=== PATIENT | female | born 1975 | race Two or more races ===

== ENCOUNTER 2017-05-12 18:36 | Emergency (ER) | payer OTHER ==
[~2017-05-12] VITALS: Ht 152.4 cm; Wt 61.2 kg
[~2017-05-12 18:36] MED LIST: ORPH100T PO; SAVELLA50 MG; SMZ-TMP DS 800-1 TAB PO; URETRON DS1 TAB PO
== END 2017-05-12 22:00 | disposition home or self-care (01) ==
LOC: ER 18:36
DX: J02.8 Acute pharyngitis due to other specified organisms (principal); J11.1 Influenza due to unidentified influenza virus with other respiratory manifestations; J06.9 Acute upper respiratory infection, unspecified

== ENCOUNTER 2020-12-31 07:24 | Emergency (ER) | payer OTHER ==
[~2020-12-31] VITALS: Ht 152.4 cm; Wt 68.0 kg
[2020-12-31] MEDS ORDERED: PAMELOR50 M1 (07:39)
[2020-12-31] MEDS ORDERED: FLEXERIL (07:41)
[2020-12-31] MEDS ORDERED: MACRODANTIN50 MG (07:41)
[2020-12-31] MEDS ORDERED: UTIX PO (15:30)
[2020-12-31] MEDS ORDERED: PYRIDIUM DS200 MG PO (15:30)
== END 2020-12-31 16:12 ==
LOC: ER 07:24
DX: N39.0 Urinary tract infection, site not specified (principal)

== ENCOUNTER 2022-01-13 17:43 | Emergency (ER) | payer OTHER ==
[~2022-01-13] VITALS: Ht 152.4 cm; Wt 58.1 kg
[~2022-01-13 17:43] MED LIST changes: +FLEXERIL; +MACRODANTIN50 MG; +PAMELOR50 M1; +PYRIDIUM DS200 MG PO; +UTIX PO
[2022-01-13] MEDS ORDERED: AMOX1TAB5 PO (19:38)
== END 2022-01-13 21:54 | disposition home or self-care (01) ==
LOC: ER 17:43
DX: N39.0 Urinary tract infection, site not specified (principal); Z88.6 Allergy status to analgesic agent

== ENCOUNTER 2024-06-15 12:31 | Emergency (ER) | payer OTHER ==
[~2024-06-15] VITALS: Ht 152.4 cm; Wt 61.2 kg
[~2024-06-15 12:31] MED LIST changes: +AMOX1TAB5 PO
[2024-06-15] MEDS ORDERED: CEFTRIAXONE SODIUM 1,000 MG VIAL ONE (13:27)
[2024-06-15] MEDS ORDERED: TAMSULOSIN HCL 0.4 MG CAP PO ONE ×2 (13:27→13:30)
[2024-06-15] MEDS ORDERED: TRAMADOL HCL 50 MG TABLET PO ONE (13:30)
[2024-06-15] MEDS ORDERED: FAMOtidine 20 MG TABLET PO ONE (13:30)
[2024-06-15] MEDS ORDERED: CEFTRIAXONE SODIUM 1,000 MG VIAL IM ONE (13:30)
[2024-06-15 14:03] LABS: HEMATOCRIT 41.7 % (36.0-45.00); HEMOGLOBIN 13.9 g/dL (12.0-15.00); MEAN CELL VOLUME 93.5 fL (80.00-100.00); MEAN CORPUSCULAR HEMOGLOBIN 31.3 pg (27.00-32.0); MEAN CORPUSCULAR HGB CONC 33.4 g/dl (32.0-36.0); PLATELET COUNT 270 K/uL (150-450); RED BLOOD COUNT 4.46 M/uL (4.00-6.00); RED CELL DISTRIBUTION WIDTH 13.3 % (11.5-14.5)
[2024-06-15 15:12] LABS: ALBUMIN 4.1 gm/dL (3.4-5.0); BILIRUBIN TOTAL 0.42 mg/dL (0.3-1.2); CALCIUM 9.4 mg/dL (8.5-10.1); CREATININE SERUM 0.75 mg/dL (0.55-1.02); GFR 82.13; GLOBULINA 3.4 G/DL (2.4-3.5); POTASSIUM 4.52 mEq/L (3.5-5.1); TOTAL PROTEIN 7.5 gm/dL (6.4-8.2)
[2024-06-15 15:49] LABS: PH,URINE 6.5 (5.0-8.0); URINE APPEARANCE Clear; URINE BILIRRUBIN Negative (NEGATIVE); URINE BLOOD Negative; URINE COLOR Dark Yellow; URINE GLUCOSE Negative (NEGATIVE); URINE KETONE Negative (NEGATIVE); URINE LEUKOCYTE Moderate; URINE NITRATE Positive; URINE PROTEIN Negative (NEGATIVE); URINE UROBILINOGEN 0.2 E.U./dl
[2024-06-15 15:50] LABS: URINE BACTERIA 220.2 uL (0.0-1933); URINE EPITHELIAL CELLS 5.2 uL (0.0-38.8); URINE WBC 191.2 uL (0.0-23.2)
== END 2024-06-15 17:08 | disposition home or self-care (01) ==
LOC: ER 12:33
PROVIDERS: General Practice
DX: N39.0 Urinary tract infection, site not specified (principal); Z88.6 Allergy status to analgesic agent; Z88.8 Allergy status to other drugs, medicaments and biological substances; M79.7 Fibromyalgia
CPT/HCPCS: 36415; 96372; 99282; J0696

== ENCOUNTER 2024-10-08 12:06 | Emergency (ER) | payer OTHER ==
[~2024-10-08] VITALS: Ht 152.4 cm; Wt 61.2 kg
[2024-10-08] MEDS ORDERED: TRIAMCINOLONE ACETONIDE 40 MG/ML VIAL IM ONE (13:45)
[2024-10-08] MEDS ORDERED: TRAMADOL HCL 50 MG TABLET PO ONE (13:45)
[2024-10-08] MEDS ORDERED: ORPHENADRINE CITRATE 30 MG/ML AMPUL IM ONE (13:45)
[2024-10-08] MEDS ORDERED: ORPHENADRINE CITRATE 30 MG/ML AMPUL ONE (14:23)
[2024-10-08] MEDS ORDERED: TRIAMCINOLONE ACETONIDE 40 MG/ML VIAL ONE (14:23)
[2024-10-08] MEDS ORDERED: NORFLEX100MG PO (14:28)
== END 2024-10-08 15:02 | disposition home or self-care (01) ==
LOC: ER 12:06
DX: M54.50 Low back pain, unspecified (principal); M79.7 Fibromyalgia; Z88.6 Allergy status to analgesic agent

== ENCOUNTER 2024-10-21 12:44 | Outpatient (CLI) | payer OTHER ==
[~2024-10-21 12:44] MED LIST changes: +NORFLEX100MG PO
== END 2024-10-21 12:51 | disposition home or self-care (01) ==
LOC: MRI 12:44
PROVIDERS: ATTEND Internal Medicine Rheumatology
DX: M54.16 Radiculopathy, lumbar region (principal)
CPT/HCPCS: 72148

== ENCOUNTER 2025-02-19 07:11 | Outpatient (CLI) | payer OTHER | END 2025-02-19 13:51 | disposition home or self-care (01) | LOC: TOM 07:11 | PROVIDERS: ATTEND Obstetrics & Gynecology | DX: D28.1 Benign neoplasm of vagina (principal) ==